=== PATIENT | male | born 1980 | race Caucasian/White ===

== ENCOUNTER 2020-05-12 18:02 | Emergency (ER) | payer SELFPAY ==
[2020-05-12] MEDS ORDERED: Bupivacaine 0.5%/EPINEPHrine 1:200,000 1.8 ML Cartridge INJECT ONE (18:32)
[2020-05-12] MEDS ORDERED: Amoxicillin/Clavulanate K 875-125 MG Tab PO ONE (18:34)
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
== END 2020-05-12 19:13 | disposition home or self-care (01) ==
LOC: JP.ED 18:02
DX: K04.7 Periapical abscess without sinus (principal); K03.81 Cracked tooth; Z72.0 Tobacco use
CPT/HCPCS: 64400; 99282; A9270; J3490; 99285

== ENCOUNTER 2020-05-12 20:52 | Emergency (ER) | payer SELFPAY ==
[2020-05-12] MEDS ORDERED: Bupivacaine 0.5%/EPINEPHrine 1:200,000 1.8 ML Cartridge INJECT ONE (21:32)
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
[2020-05-12] MEDS ORDERED: Ketorolac 30 MG/ML SDV IM ONE (21:55)
== END 2020-05-12 22:49 | disposition home or self-care (01) ==
LOC: JP.ED 20:52
DX: K04.7 Periapical abscess without sinus (principal); K02.9 Dental caries, unspecified; Z72.0 Tobacco use
CPT/HCPCS: 64400; 96372; 99282; J1885; J3490